=== PATIENT | female | born 1950 | race Caucasian/White ===

== ENCOUNTER → 2016-08-27 | Outpatient (CLI) | payer MEDICARE, OTHER | END | disposition home or self-care (01) | LOC: RAD.S 08:09 | DX: N13.30 Unspecified hydronephrosis (principal); N26.1 Atrophy of kidney (terminal) ==

== ENCOUNTER → 2016-09-26 | Outpatient (CLI) | payer MEDICARE, OTHER | END | disposition home or self-care (01) | LOC: RAD.S 14:17 | DX: R19.04 Left lower quadrant abdominal swelling, mass and lump (principal); C56.1 Malignant neoplasm of right ovary; N28.89 Other specified disorders of kidney and ureter; I10 Essential (primary) hypertension; R59.0 Localized enlarged lymph nodes ==

== ENCOUNTER 2016-10-09 07:19 | Day surgery (SDC) | payer MEDICARE, OTHER ==
[~2016-10-09] VITALS: Ht 153.7 cm; Wt 87.0 kg
== END 2016-10-09 10:12 | disposition home or self-care (01) ==
LOC: RAD.S 07:19 → EDSTATUS 09:00 → RAD.S 09:00
PROC: 0WBH3ZX Excision of Retroperitoneum, Percutaneous Approach, Diagnostic (ICD-10-PCS; principal; 2016-10-09)
DX: C76.3 Malignant neoplasm of pelvis (principal); I10 Essential (primary) hypertension; Z79.899 Other long term (current) drug therapy; Z85.43 Personal history of malignant neoplasm of ovary